=== PATIENT | male | born 1955 | race Caucasian/White ===

== ENCOUNTER 2016-11-08 17:39 | Inpatient (IN) | payer MEDICAID ==
[2016-11-08 17:40] VITALS: BMI 26.6
[2016-11-08 18:40] LABS: RBC URINE 6 /hpf (0-3); URINE BILIRUBIN NEGATIVE (NEGATIVE); URINE BLOOD 1+ (NEGATIVE); URINE COLOR Yellow (YELLOW); URINE GLUCOSE (UA) NORMAL (Normal); URINE KETONE NEGATIVE (NEGATIVE); URINE LEUKOCYTE ESTERASE NEG Leu/uL (Negative); URINE PROTEIN NEGATIVE (NEGATIVE); URINE UROBILINOGEN NORMAL mg/dL (0.2-1.0); WBC URINE 1 /hpf (0-5)
--- NOTE | 2016-11-08 19:09 | C.PDOC ---
History Of Present Illness <Kaz Lindsey - Last Filed: 11/08/16 19:08> <Ruddy Timmons - Last Filed: 11/08/16 21:47> Patient presents to the ER requesting detox from heroin, last use was today at 10:00. Denies any physical complaints at this time. (Ruddy Timmons) <Kaz Lindsey - Last Filed: 11/08/16 19:08> History Per: Patient History/Exam Limitations: no limitations Onset/Duration Of Symptoms: Hrs Current Symptoms Are (Timing): Still Present Suicide/Self Injury Attempted (Context): None Modifying Factor(s): Narcotics Severity: None Pain Scale Rating Of: 0 Associated Symptoms: denies: Depression, Suicidal Thoughts, Suicidal Plan Involuntary Hold By: None Recent travel outside of the [place]: No <Ruddy Timmons - Last Filed: 11/08/16 21:47> Time Seen by Provider: 11/08/16 19:08 Chief Complaint (Nursing): Substance Abuse Past Medical History - Medical History PMH: Back Problems, HTN, Hypercholesterolemia Denies: Anxiety, Depression, Chronic Kidney Disease Surgical History: Hernia Repair (Right Inguinal Hernia) Family History: States: Unknown Family Hx - Social History Hx Tobacco Use: Yes Hx Alcohol Use: No Hx Substance Use: Yes - Immunization History Hx Tetanus Toxoid Vaccination: No Hx Influenza Vaccination: No Hx Pneumococcal Vaccination: Yes <Kaz Lindsey - Last Filed: 11/08/16 19:08> Reviewed: Historical Data, Nursing Documentation, Vital Signs Family History: States: No Known Family Hx <Katty Timmonsradha - Last Filed: 11/08/16 21:47> Vital Signs: Last Vital Signs Temp 98.5 F 11/08/16 21:37 Pulse 66 11/08/16 21:37 Resp 18 11/08/16 21:37 BP 137/82 11/08/16 21:37 Pulse Ox 97 11/08/16 21:37 - [facility] Procedures CENTRAL VENOUS CATHETER PLACEMENT WITH GUIDANCE (10/21/13) COLONOSCOPY (02/05/13) ESOPHAGOGASTRODUODENOSCOPY [EGD] W/CLOSED BIOPSY (02/05/13) EXCIS DEBRIDE OF WOUND, INFECT, OR BURN (10/21/13) OTHER SKIN & SUBQ I D (10/21/13) Review Of Systems Constitutional: Negative for: Fever, Chills Gastrointestinal: Negative for: Nausea, Vomiting, Diarrhea <Ruddy Timmons - Last Filed: 11/08/16 21:47> Physical Exam - Physical Exam Appears: Non-toxic Skin: Warm, Dry Oral Mucosa: Moist Chest: Symmetrical, No Tenderness Cardiovascular: Rhythm Regular, No Murmur Respiratory: No Rales, No Rhonchi, No Wheezing Gastrointestinal/Abdominal: Soft, No Tenderness Neurological/Psych: Oriented x3 <Katty Timmons - Last Filed: 11/08/16 21:47> ED Course And Treatment O2 Sat by Pulse Oximetry: 96 <[facility] Last Filed: 11/08/16 19:08> - Laboratory Results Result Diagrams: 11/08/16 20:35 11/08/16 20:35 Pulse Ox Interpretation: Normal Progress Note: Crisis contacted for availability of detox beds. <Ruddy Timmons - Last Filed: 11/08/16 21:47> Disposition Counseled Patient/Family Regarding: Studies Performed, Diagnosis - Disposition Disposition Time: 19:08 <[facility] - Last Filed: 11/08/16 19:08> Discussed With : Augustina Varela Comment: accepted the pt on her service and took over the care at 9:47 PM Doctor Will See Patient In The: Hospital Counseled Patient/Family Regarding: Studies Performed, Diagnosis - POA Present On Arrival: None <Ruddy Timmons - Last Filed: 11/08/16 21:47> - Disposition Condition: FAIR - Clinical Impression Clinical Impression: Opioid abuse <[facility] - Last Filed: 11/08/16 19:08> - Scribe Statement The provider has reviewed the documentation as recorded by the Scribe <Ruddy Timmons - Last Filed: 11/08/16 21:47> - Scribe Statement Ad Jacobsen All medical record entries made by the Scribe were at my direction and personally dictated by me. I have reviewed the chart and agree that the record accurately reflects my personal performance of the history, physical exam, medical decision making, and the department course for this patient. I have also personally directed, reviewed, and agree with the discharge instructions and disposition. (Ruddy Timmons) Decision To Admit <[facility] - Last Filed: 11/08/16 19:08> - Pt Status Changed To: Hospital Disposition Of: Inpatient - Admit Certification Admit to Inpatient:: After my assessment, the patient will require hospitalization for at least two midnights. This is because of the severity of symptoms shown, intensity of services needed, and/or the medical risk in this patient being treated as an outpatient. - InPatient: Physician Admission Certification: I certify that this patient requires 2 or more midnights of care for the following reason:: After my assessment, the patient will require hospitalization for at least two midnights. This is because of the severity of symptoms shown, intensity of services needed, and/or the medical risk in this patient being treated as an outpatient. - . Bed Request Type: Detox Admitting Physician: Augustina Varela <Ruddy Timmons - Last Filed: 11/08/16 21:47> - . Patient Diagnosis: Opioid abuse
[2016-11-08 20:38] LABS: BASO # 0.1 K/uL (0.0-0.2); BASO % 0.7 % (0.0-2.0); EOS # 0.1 K/uL (0.0-0.7); EOS % 1.5 % (0.0-4.0); HEMATOCRIT 36.1 % (35.0-51.0); LYMPH # 2.1 K/uL (1.0-4.3); LYMPH % 26.8 % (20.0-40.0); MEAN CELL VOLUME 90.6 fL (80.0-94.0); MEAN CORPUSCULAR HEMOGLOBIN 29.8 pg (27.0-31.0); MEAN CORPUSCULAR HGB CONC 32.9 g/dL (33.0-37.0); MEAN PLATELET VOLUME 9.2 fL (7.2-11.7); MONO # 0.6 K/uL (0.0-0.8); MONO % 7.7 % (0.0-10.0); NRBC % 0.1 % (0.0-2.0); RED CELL DISTRIBUTION WIDTH 14.8 % (11.5-14.5); WHITE BLOOD COUNT 7.7 K/uL (4.8-10.8)
[2016-11-08 21:36] LABS: CHLORIDE 101 mmol/L (98-107)
[2016-11-08 21:37] LABS: POTASSIUM 3.7 mmol/L (3.6-5.2); SODIUM 139 mmol/L (132-148)
[2016-11-08 21:39] LABS: ALB/GLOB RATIO 1.3 (1.0-2.1); BILIRUBIN,TOTAL 0.4 mg/dL (0.2-1.3); CARBON DIOXIDE 28 mmol/L (22-30); GFR AFRICAN-AMERICAN > 60; TOTAL PROTEIN 6.4 g/dL (6.3-8.3)
[2016-11-08 21:40] LABS: ALKALINE PHOSPHATASE 52 U/L (38-126); ALT/SGPT 17 U/L (21-72); AST/SGOT 19 U/L (17-59); BLOOD UREA NITROGEN 19 mg/dL (9-20); CALCIUM 8.7 mg/dl (8.6-10.4); GLUCOSE,RANDOM 84 mg/dL (75-110)
[2016-11-08 21:41] LABS: ALCOHOL SERUM < 10 mg/dl (0-10)
[2016-11-09] MEDS ORDERED: Aluminum Hydroxide/Magnesium Hydroxide Susp (30 mL) PO PRN (09:41)
--- NOTE | 2016-11-09 14:19 | PCM.PSYCH ---
Initial Psychiatric Evaluation - Initial Psychiatric Evaluation Type of Admission: Voluntary Legal Status: Capacity Chief Complaint (in patient's own words): "I am in withdrawal" History of Present Illness and Precipitating Events: The patient is seen, chart reviewed and case discussed. This is a 61-year-old male, common-law and has 3 adult children, all in their 30s. He lives with his and he is on SSI due to disc hernia. The patient admits to using 6-10 bags of IV heroin for the last 2 months but he first started in his 20s. Last used yesterday and he was starting to have wdw this morning. He also uses methadone on and off to come off from heroin. He had 2 detoxes and two rehabs in the past and never used Suboxone or Vivitrol. He is refusing to use Suboxone because he had a bad experience with it. The patient uses marijuana occasionally, cocaine in the past and smokes 1 pack per day cigarettes. Denies alcohol use and other drugs. He denies psychiatric issues. Past psychiatric history: Denies Family psych history: Denies Medical history: Hypertension, disc hernia, hypercholesterolemia Current Medications: Active Medications Generic Name Dose Route Start Last Admin Trade Name Freq PRN Reason Stop Dose Admin Al Hydrox/Mg Hydrox/Simethicone 30 ml 11/09/16 09:41 Maalox 30 Ml PO TID PRN Indigestion / Heartburn Clonidine HCl 0.1 mg 11/09/16 09:41 Catapres PO Q8 PRN COWS Score More or Equal to 5 Hydrochlorothiazide 12.5 mg 11/09/16 10:00 11/09/16 13:16 Microzide PO 12.5 mg DAILY GIUSEPPE Administration Hydroxyzine HCl 25 mg 11/08/16 22:01 Atarax PO Q6 PRN Anxiety Lisinopril 10 mg 11/09/16 10:00 11/09/16 13:16 Zestril PO 10 mg DAILY GIUSEPPE Administration Loperamide HCl 2 mg 11/09/16 09:41 Imodium PO Q8 PRN Diarrhea Methadone HCl 15 mg 11/10/16 10:00 Methadone PO 11/13/16 09:59 Q24H GIUSEPPE Taper Nicotine 1 patch 11/09/16 10:00 11/09/16 10:58 Nicoderm Cq TD 1 patch DAILY GIUSEPPE Administration Ondansetron HCl 4 mg 11/09/16 09:41 Zofran Tab PO Q8 PRN Nausea/Vomiting Trazodone HCl 50 mg 11/08/16 22:00 Desyrel PO HS PRN Insomnia Past Psychiatric History - Past Psychiatric History Previous Treatment History: None Pertinent Medical Hx (Current Medical&Sleep Prob, Allergies): Allergies Allergy/AdvReac Type Severity Reaction Status Date / Time No Known Allergies Allergy Verified 11/08/16 17:52 Lisinopril/Hydrochlorothiazide [Zestoretic 10-12.5 mg Tablet] 1 each PO DAILY Review of Systems - Neurological Neurological: UNREMARKABLE - Psychiatric Psychiatric: Abnormal Sleep Pattern, Anxiety, Irritability. absent: Hallucinations, Homicidal Ideation, Suicidal Ideation Mental Status Examination - Personal Presentation Personal Presentation: Looks stated age - Affect Affect: Constricted - Motor Activity Motor Activity: Calm - Reliability in Providing Information Reliability in Providing Information: Good - Speech Speech: Organized - Mood Mood: Anxious - Formal Thought Process Formal Thought Process: No Impairment - Cognitive Functions Orientation: Person, Place, Situation, Time Sensorium: Alert Attention/Concentration: Attentive Estimate of Intelligence: Average Judgement: Intact, as evidence by: Insight regarding need for hospitalization Memory: Recent intact, as evidence by: Ability to recall events of the day, Remote intact, as evidenced by: Ability to recall historical events - Risk Risk: Withdrawal, Diminished functioning - Strength & Assets Inventory Strength & Assets Inventory: Family support, Cooperative - Limitations Limitations: Other DSM 5 DX - DSM 5 DSM 5 Diagnosis: Opioid withdrawal Opioid use severe Cannabis use d/o - moderate Tobacco use d/o - severe - Recommended/Plan of Treatment Treatment Recommendations and Plan of Treatment: Methadone detox As needed meds and vitamins Attend groups and activities [place] for abstinence and CBT for relapse prevention Support and psychoeducation Consider and encourage MAT Refer to after care Tobacco: [place] for abstinence Patch cannabis:[place] for abstinence Attend groups and activities 33 min Projected ELOS: 4 days Prognosis: Good w treatment - Smoking Cessation Smoking Cessation Initiated: Yes
[2016-11-10] MEDS ORDERED: Magnesium Hydroxide Susp 30 ml UD PO ONE (10:31)
--- NOTE | 2016-11-10 13:21 | PCM.PYCHPN ---
Psychiatric Progress Note - Psychiatric Progress Note Patient seen today, length of contact: 16 min Patient Chief Complaint: "I am ok" Problems Identified/Issues Discussed: The pt is seen, chart reviewed, case discussed with staff. Support given, CBT and [place] used briefly No new symptoms reported, improving slowly and needs more time Has constipation No SEs from medications, risks discussed. After care discussed Medication Change: Yes (detox chgs daily) Medical Record Reviewed: Yes Mental Status Examination - Cognitive Function Orientation: Person, Place, Situation, Time Memory: Intact Attention: WNL Concentration: Poor Association: WNL Fund of Knowledge: WNL - Mood Mood: Anxious - Affect Affect: Constricted - Speech Speech: Appropriate - Formal Thought Process Formal Thought Process: No Impairment - Suicidal Ideation Suicidal Ideation: No - Homicidal Ideation Homicidal Ideation: No Goal/Treatment Plan - Goal/Treatment Plan Need for Continued Stay: Discharge may exacerbated symptoms, Severe functional impairment Progress Toward Problem(s) and Goals/Treatment Plan: Methadone detox As needed meds and vitamins Attend groups and activities [place] for abstinence and CBT for relapse prevention Support and psychoeducation Consider and encourage MAT Refer to after care Tobacco: [place] for abstinence Patch cannabis:[place] for abstinence Attend groups and activities
[2016-11-11] MEDS ORDERED: Bisacodyl 5mg EC Tab PO ONE (11:30)
--- NOTE | 2016-11-11 14:15 | PCM.PYCHPN ---
Psychiatric Progress Note - Psychiatric Progress Note Patient seen today, length of contact: 16 min Patient Chief Complaint: "I still couldn;t use the bathroom" Problems Identified/Issues Discussed: The pt is seen, chart reviewed, case discussed with staff. The pt is compliant with medications and reports no side-effects. Symptoms are improving but needs more time to stabilize. Dulcolax added After care discussed, support and psychoeducation given. Medication Change: Yes (detox chgs daily) Medical Record Reviewed: Yes Mental Status Examination - Cognitive Function Orientation: Person, Place, Situation, Time Memory: Intact Attention: WNL Concentration: Poor Association: WNL Fund of Knowledge: WNL - Mood Mood: Anxious - Affect Affect: Constricted - Speech Speech: Appropriate - Formal Thought Process Formal Thought Process: No Impairment - Suicidal Ideation Suicidal Ideation: No - Homicidal Ideation Homicidal Ideation: No Goal/Treatment Plan - Goal/Treatment Plan Need for Continued Stay: Discharge may exacerbated symptoms, Severe functional impairment Progress Toward Problem(s) and Goals/Treatment Plan: Methadone detox As needed meds and vitamins Attend groups and activities [place] for abstinence and CBT for relapse prevention Support and psychoeducation Consider and encourage MAT Refer to after care Tobacco: [place] for abstinence Patch cannabis:[place] for abstinence Attend groups and activities Estimated Date of D/C: 11/12/16
--- NOTE | 2016-11-12 08:38 | PCM.PYCHDC ---
Mental Status Examination - Mental Status Examination Orientation: Person, Place, Situation, Time Memory: Intact Mood: Anxious Affect: Broad Speech: Appropriate Attention: WNL Concentration: WNL Association: WNL Fund of Knowledge: WNL Formal Thought Process: No Impairment Suicidal Ideation: No Current Homicidal Ideation?: No Discharge Summary - Discharge Note Reason for Hospitalization: Heroin detox Psychiatric History (includes Medical, Family, Personal Hx): None Consultations:: List each consultation separately and include: 1. Reason for request. 2. Findings. 3. Follow-up Consultations: None Summary of Hospital Course include:: 1. Description of specific treatment plan utilized for patients during their course of treatmen. 2. Summarize the time- course for resolution of acute symptoms and/or regressed behaviors. 3. Describe issues identified and worked on during hospitalization. 4. Describe medication utilized. 5. Describe medical problems identified and treated. 6. Reassessment of suicide risk Summary of Hospital Course: On admission: The patient is seen, chart reviewed and case discussed. This is a 61-year-old male, common-law and has 3 adult children, all in their 30s. He lives with his and he is on SSI due to disc hernia. The patient admits to using 6-10 bags of IV heroin for the last 2 months but he first started in his 20s. Last used yesterday and he was starting to have wdw this morning. He also uses methadone on and off to come off from heroin. He had 2 detoxes and two rehabs in the past and never used Suboxone or Vivitrol. He is refusing to use Suboxone because he had a bad experience with it. The patient uses marijuana occasionally, cocaine in the past and smokes 1 pack per day cigarettes. Denies alcohol use and other drugs. He denies psychiatric issues. Past psychiatric history: Denies Family psych history: Denies Medical history: Hypertension, disc hernia, hypercholesterolemia Hospital course: The pt was admitted and started on treatment with psychotherapy, support, psychoeducation and medications. AR and CBT used. The pt attended groups and activities, as well as milieu therapy. He was slightly aloof and had an I-know-all attitude. All the risks and benefits of medications are discussed and the patient understood and agreed. Colace added due to constipation After care discussed with the patient. He refused all but NA and said "I've done them all." He will consider MAT if he gets cravings again. Risks of poor after care discussed. - Final Diagnosis (DSM 5) Condition upon Discharge: IMPROVED DSM 5: Opioid withdrawal Opioid use severe Cannabis use d/o - moderate Tobacco use d/o - severe Disposition: HOME/ ROUTINE Follow-up Treatment Plan: Continue below medications after discharge. Follow after care plan as discussed. NA but consider MAT and IOP Use relapse prevention skills Return to ER or call 911 if suicidal, homicidal or symptoms relapse. Stay away from stress, alcohol and drugs. See primary doctor once a year. Prescriptions/Medication Reconciliation: Docusate [Colace] 100 mg PO DAILY #30 cap Lisinopril/Hydrochlorothiazide [Zestoretic 10-12.5 mg Tablet] 1 each PO DAILY # 30 traZODone [Desyrel] 50 mg PO HS PRN #30 tab PRN Reason: Insomnia - Smoking Cessation Smoking Cessation Medication prescribed: No - Antipsychotic Medications Pt discharged on 2 or more routine antipsychotic medications: No
[2016-11-12 09:59] VITALS: BP 134/87; PULSE 77; RESP 20; TEMP 98; O2SAT 97
== END 2016-11-12 09:30 | disposition home or self-care (01) | DRG 745 ==
LOC: C.ER 17:39 → C.7D 21:47
PROVIDERS: ADMIT Psychiatry & Neurology Psychiatry; ATTEND Psychiatry & Neurology Psychiatry
PROC: HZ52ZZZ Individual Psychotherapy for Substance Abuse Treatment, Cognitive-Behavioral (ICD-10-PCS; principal; 2016-11-08)
PROC: HZ2ZZZZ Detoxification Services for Substance Abuse Treatment (ICD-10-PCS; 2016-11-08)
PROC: HZ59ZZZ Individual Psychotherapy for Substance Abuse Treatment, Supportive (ICD-10-PCS; 2016-11-08)
PROC: HZ56ZZZ Individual Psychotherapy for Substance Abuse Treatment, Psychoeducation (ICD-10-PCS; 2016-11-08)
DX: F11.23 Opioid dependence with withdrawal (principal); I10 Essential (primary) hypertension; F17.210 Nicotine dependence, cigarettes, uncomplicated; F12.90 Cannabis use, unspecified, uncomplicated; E78.00 Pure hypercholesterolemia, unspecified; K59.00 Constipation, unspecified

== ENCOUNTER 2018-05-13 14:23 | Emergency (ER) | payer MEDICAID ==
[2018-05-13 14:24] VITALS: BMI 26.2
[2018-05-13 14:58] VITALS: BP 114/77; PULSE 69; RESP 18; TEMP 98.4; O2SAT 100
[2018-05-13] MEDS ORDERED: Bacitracin 500 Units/gm Oint Foilpak UD TOP ONE (15:26)
[2018-05-13] MEDS ORDERED: Tdap Vaccine 0.5 ml Vial (10-64 yrs) IM ONE ×2 (15:26→15:38)
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
[2018-05-13] MEDS ORDERED: Bacitracin 500 Units/gm Oint Foilpak UD ONE (15:38)
== END 2018-05-13 15:52 | disposition home or self-care (01) ==
LOC: C.ER 14:23
DX: S60.311A Abrasion of right thumb, initial encounter (principal); W27.2XXA Contact with scissors, initial encounter; E11.9 Type 2 diabetes mellitus without complications; E78.00 Pure hypercholesterolemia, unspecified; I10 Essential (primary) hypertension; Z72.0 Tobacco use; Z23 Encounter for immunization